=== PATIENT | female | born 1950 | race Two or more races ===

== ENCOUNTER 2020-07-31 10:45 | Inpatient (IN) | payer OTHER ==
[~2020-07-31] VITALS: Ht 160 cm; Wt 83.9 kg
[2020-07-31] MEDS ORDERED: LEVO-T25 MCG PO (14:15)
[2020-08-08] MEDS ORDERED: SIMVASTATIN40 MG (09:31)
[2020-08-08] MEDS ORDERED: GEMFIBROZIL600 MG (09:31)
[2020-08-08] MEDS ORDERED: LEVOTHYROXINE100 MCG (09:31)
== END 2020-08-11 06:55 | disposition home or self-care (01) | DRG 330 ==
LOC: SURG 08-07 05:00 → O/R 08-07 05:00 → SURH 08-07 10:45 → SURG 08-07 16:52
PROVIDERS: ADMIT Colon & Rectal Surgery; ATTEND Colon & Rectal Surgery
PROC: 3E0F7SF Introduction of Other Gas into Respiratory Tract, Via Natural or Artificial Opening (ICD-10-PCS; 2020-08-07)
PROC: 0DTN4ZZ Resection of Sigmoid Colon, Percutaneous Endoscopic Approach (ICD-10-PCS; 2020-08-07)
PROC: 0DTP4ZZ Resection of Rectum, Percutaneous Endoscopic Approach (ICD-10-PCS; principal; 2020-08-07 13:30)
DX: K57.32 Diverticulitis of large intestine without perforation or abscess without bleeding (principal); K92.1 Melena; I10 Essential (primary) hypertension; Z20.822 Contact with and (suspected) exposure to COVID-19